=== PATIENT | male | born 1980 | race Caucasian/White ===

== ENCOUNTER 2019-01-05 15:12 | Emergency (ER) | payer MEDICAID ==
[~2019-01-05] VITALS: Ht 177.8 cm; Wt 81.6 kg
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
--- NOTE | 2019-01-05 16:34 | NUR ---
Patient discharged to home in stable condition. Written and verbal after care instructions given. Patient verbalizes understanding of instruction.
[2019-01-05 16:35] VITALS: BP 124/84
== END 2019-01-05 16:36 | disposition home or self-care (01) ==
LOC: ER 15:15
DX: M79.674 Pain in right toe(s) (principal); W22.8XXA Striking against or struck by other objects, initial encounter; Y93.89 Activity, other specified; Y92.89 Other specified places as the place of occurrence of the external cause; Y99.8 Other external cause status
CPT/HCPCS: 73660-TC

== ENCOUNTER 2020-01-18 23:18 | Emergency (ER) | payer MEDICAID ==
[~2020-01-18] VITALS: Ht 177.8 cm; Wt 82.6 kg
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
--- NOTE | 2020-01-18 23:37 | NUR ---
X RAY AT BED SIDE
--- NOTE | 2020-01-18 23:58 | NUR ---
AT BED SIDE
[2020-01-19] MEDS ORDERED: IBUPROFEN 400 MG TABLET PO ONE
--- NOTE | 2020-01-19 00:14 | NUR ---
PT is medically stable for D/C. pt has his own ankle brace which is approved by md. Patient discharged to home in stable condition. Rx and Written and verbal after care instructions given. Patient verbalizes understanding of instruction.
[2020-01-19 00:15] VITALS: BP 130/85
== END 2020-01-19 00:16 | disposition home or self-care (01) ==
LOC: ER 23:18
DX: S90.01XA Contusion of right ankle, initial encounter (principal); S90.31XA Contusion of right foot, initial encounter; W18.39XA Other fall on same level, initial encounter; Y93.89 Activity, other specified; Y92.89 Other specified places as the place of occurrence of the external cause; Y99.8 Other external cause status
CPT/HCPCS: 73610-TC; 73630-TC

== ENCOUNTER 2020-07-26 10:00 | Emergency (ER) | payer MEDICAID ==
[~2020-07-26] VITALS: Ht 177.8 cm; Wt 86.2 kg
[2020-07-26] MEDS ORDERED: KETOROLAC TROMETHAMINE 15 MG/ML VIAL ONE ×2 (10:41→12:37)
[2020-07-26 10:47] LABS: BASOPHILS % (AUTO) 0.3 % (0.0-2.0); EOSINOPHILS % (AUTO) 2.3 % (0.0-6.0); HEMATOCRIT 44 % (39-51); HEMOGLOBIN 14.2 g/dL (13.5-17.5); LYMPHOCYTES # (AUTO) 2.2 /CMM (0.8-4.8); LYMPHOCYTES % (AUTO) 28.7 % (20.0-44.0); MEAN CORPUSCULAR HGB CONC 33 g/dl (31.0-36.0); MEAN CORPUSCULAR VOLUME 88 fL (80-96); MONOCYTES # (AUTO) 1.1 /CMM (0.1-1.30); NEUTROPHILS # (AUTO) 4.1 /CMM (1.8-8.9); NEUTROPHILS % (AUTO) 54.7 % (43.0-81.0); PLATELET COUNT (AUTO) 221 /CMM (150-450); RED BLOOD CELL COUNT(AUTO) 4.93 MIL/uL (4.5-6.0); WHITE BLOOD COUNT (AUTO) 7.6 K/uL (4.3-11.0)
--- NOTE | 2020-07-26 10:48 | NUR ---
SUDDEN ONSET LUQ ABDOMINAL PAIN STARTED 0800. PT AAOX4, VSS. RR EVEN & UNLABORED. DENIES CP, SOB, DIZZINESS, N/V AT THIS TIME. PT SEEN & EVAL'D BY DR. SERRANO. MEDICATED ORDERED, PT STARR WELL. WILL CONT TO MONITOR.
[2020-07-26 10:49] LABS: BILIRUBIN,URINE Negative (NEGATIVE); COLOR,URINE YELLOW (YELLOW); LEUKOCYTE ESTERASE ,URINE Negative (NEGATIVE); NITRITE, URINE Negative (NEGATIVE); PROTEIN,URINE Negative (NEGATIVE); UGLUCOSE Negative (NEGATIVE); UROBILINOGEN,URINE 0.2 EU/dL (0.2)
[2020-07-26 10:50] LABS: BACTERIA,URINE Few /HPF (None Seen); SQUAMOUS EPITHELIAL CELL,UR Rare /HPF (None Seen); WBC,URINE 0-2 /HPF (0-3)
[2020-07-26 10:55] LABS: CALCIUM, SERUM 8.5 mg/dL (8.5-10.1); CREATININE 1.2 mg/dL (0.6-1.3); POTASSIUM 4.1 mmol/L (3.5-5.1)
[2020-07-26] MEDS ORDERED: KETOROLAC TROMETHAMINE INJ 30 MG/ML VIAL IV ONE ×2 (11:00→13:00)
[2020-07-26] MEDS ORDERED: IV NS 0.9% 1,000 ML BAG IV ONE (11:00)
[2020-07-26 11:01] LABS: BILIRUBIN,DIRECT 0.1 mg/dL (0.0-0.2); BILIRUBIN,TOTAL 0.4 mg/dL (0.2-1.0); TOTAL PROTEIN, SERUM 7.1 g/dL (6.4-8.2)
[2020-07-26] MEDS ORDERED: TAMS-12 PO (11:58)
[2020-07-26] MEDS ORDERED: IBUP-1957 PO (11:58)
--- NOTE | 2020-07-26 12:56 | NUR ---
Patient discharged to home in stable condition. Written and verbal after care instructions given. Patient verbalizes understanding of instruction. IV removed. Catheter intact and site benign. Pressure and 4x4 applied to site. No bleeding noted.
[2020-07-26 12:57] VITALS: BP 128/83
== END 2020-07-26 12:57 | disposition home or self-care (01) ==
LOC: ER 10:02
DX: N20.0 Calculus of kidney (principal); Z79.899 Other long term (current) drug therapy
CPT/HCPCS: 36415; 74176; 80048; 80076; 81001; 83690; 85025; 96361; 96374; 96376; 99284; J1885 ×2; J7030